=== PATIENT | male | born 1955 | race Caucasian/White ===

== ENCOUNTER 2017-09-11 09:36 | Day surgery (SDC) | payer OTHER ==
[2017-09-11] MEDS ORDERED: MIDAZOLAM 1 MG/ML 2 ML INJ (11:51)
[2017-09-11] MEDS ORDERED: ROCURONIUM 50 MG INJ (11:51)
[2017-09-11] MEDS ORDERED: FENTAnyl 50 MCG/ML VIAL ×2 (11:51→12:09)
[2017-09-11] MEDS ORDERED: NEOSTIGMINE 3 MG/3 ML SYRINGE (11:51)
[2017-09-11] MEDS ORDERED: PROPOFOL 20 ML (11:51)
[2017-09-11] MEDS ORDERED: GLYCOPYRROLATE 0.4 MG INJ (11:51)
[2017-09-11] MEDS ORDERED: CEFAZOLIN 1 GM INJ (11:51)
[2017-09-11] MEDS ORDERED: DEXAMETHASONE 4 MG/ML 1 ML INJ ×2 (11:52→11:54)
[2017-09-11] MEDS ORDERED: ONDANSETRON 4 MG INJ (11:52)
[2017-09-11] MEDS ORDERED: LIDOCAINE 1%/EPI 30 ML INJ (11:55)
== END 2017-09-11 13:35 | disposition home or self-care (01) ==
LOC: SDS 09:36
DX: C32.9 Malignant neoplasm of larynx, unspecified (principal); I10 Essential (primary) hypertension; I25.10 Atherosclerotic heart disease of native coronary artery without angina pectoris; J44.9 Chronic obstructive pulmonary disease, unspecified; F17.200 Nicotine dependence, unspecified, uncomplicated
CPT/HCPCS: 31535; 88307